=== PATIENT | male | born 1995 ===

== ENCOUNTER 2019-07-30 23:23 | Emergency (ER) | payer SELFPAY ==
[2019-07-31 01:05] LABS: Bilirubin,Urine NEG (Negative); Blood,Urine NEG (Negative); Color,Urine Yellow (Yellow); Hyaline Casts,Urine 1 /LPF; Mucus,Urine FEW /HPF; Protein,Urine <15 mg/dL mg/dL (Negative); RBC,Urine < 1.0 /HPF (0.0-6.0)
[2019-07-31 04:10] VITALS: BP 119/57
[2019-07-31] MEDS ORDERED: ONDANSETRON 4 MG/2 ML INJ IV ONE (05:37)
[2019-07-31] MEDS ORDERED: SODIUM CHLORIDE 0.9% 1000 ML 1,000 ML IV ONE (05:37)
--- NOTE | 2019-07-31 05:40 | Emergency Department Report ---
Vomiting/Diarrhea - HPI Chief Complaint: Nausea/Vomiting/Diarrhea Stated Complaint: N/V; CONSTIPATION Time Seen by Provider: 07/31/19 04:43 Duration: 1 week Severity: severe Nausea/Vomiting Severity: Severe Diarrhea Severity: None Pain Location: Generalized Pain Severity: Moderate Symptoms: No Watery Diarrhea, No Bloody diarrhea, No Fever, No Able to Tolerate Fluids, No Recent Unusual Foods, No Recent Untreated Water, No Recent use of Antibiotics, No Family w/ Similar Symptoms, No Contacts w/ Similar Symptoms, No Rash, No Hematuria, No Recent URI Symptoms Other History: This is a 24-year-old male that presents to the emergency room with abdominal cramping, vomiting, and burping for 1 week. Patient states he felt constipated. Patient reports burping and abdominal cramping is worse with movement. He also reports she feels. He has not taken anything for symptomatic relief. He denies travel, no unusual foods, no diarrhea, chest pain, shortness of breath, or dizziness. ED Review of Systems ROS: Stated complaint: N/V; CONSTIPATION Other details as noted in HPI Constitutional: chills. denies: fever ENT: denies: ear pain, throat pain Respiratory: denies: cough, shortness of breath, wheezing Cardiovascular: denies: chest pain, palpitations Gastrointestinal: abdominal pain, nausea, vomiting, constipation. denies: diarrhea, hematemesis, melena, hematochezia Genitourinary: denies: urgency, dysuria Musculoskeletal: denies: back pain, joint swelling, arthralgia Skin: denies: rash, lesions Neurological: denies: headache, weakness, paresthesias Psychiatric: denies: anxiety, depression ED Past Medical Hx - Surgical History Additional Surgical History: "SURGERY FOR BUMPS ON LOWER BACK??" - Social History Smoking Status: Never Smoker Substance Use Type: None - Medications Home Medications: Home Medications Medication Instructions Recorded Confirmed Last Taken Type Ibuprofen [Motrin 600 MG tab] 600 mg PO Q8H PRN #21 tablet 07/11/14 Unknown Rx Omeprazole 20 mg PO BID #30 tab. 07/31/19 Unknown Rx Ondansetron [Zofran Odt] 4 mg PO Q8HR PRN #20 tab.dina 07/31/19 Unknown Rx Vomiting Diarrhea Exam - Exam General: Vital signs noted. No distress. Alert and acting appropriately. HEENT: Yes Pharyngeal Erythema (emittance posterior pharynx, uvula midline), Yes Moist Mucous Membranes, No Pharyngeal Exudates, No Rhinorrhea, No Conjuctival Injection, No Frontal Tenderness, No Maxillary Tenderness Neck: No Adenopathy, No Rigidity Lungs: Yes Clear Lung Sounds, Yes Good Air Exchange, No Wheezes, No Stridor, No Cough, No Nasal Flaring, No Retractions, No Use of Accessory Muscles Heart exam: Regular: Yes, Murmur: No, Tachycardia: No Abdomen: Tenderness: Yes (left lower quadrant), Peritoneal Signs: No, Distention: No, Hyperactive Bowel sounds: No Skin exam: Rash: No, Edema: No, Normal turgor: Yes Neurologic: Alert and oriented, no deficits. Musculoskeletal: Unremarkable. ED Course Vital Signs 07/31/19 07/31/19 00:04 04:09 Temperature 99.4 F Pulse Rate 57 L 93 H Respiratory 18 16 Rate Blood Pressure 127/88 Blood Pressure 119/57 [Left] O2 Sat by Pulse 96 99 Oximetry ED Medical Decision Making - Lab Data Result diagrams: 07/31/19 05:40 07/31/19 05:40 Lab Results 07/31/19 07/31/19 07/31/19 Range/Units 00:17 05:40 05:40 WBC 4.6 (4.5-11.0) K/mm3 RBC 4.73 (3.65-5.03) M/mm3 Hgb 14.7 (11.8-15.2) gm/dl Hct 43.1 (35.5-45.6) % MCV 91 (84-94) fl MCH 31 (28-32) pg MCHC 34 (32-34) % RDW 13.0 L (13.2-15.2) % Plt Count 204 (140-440) K/mm3 Lymph % (Auto) [employer] Add Manual Diff Complete Total Counted 100 Seg Neutrophils % [employer] Seg Neuts % (Manual) 27.0 L (40.0-70.0) % Band Neutrophils % 0 % Lymphocytes % (Manual) 65.0 H (13.4-35.0) % Reactive Lymphs % (Man) 0 % Monocytes % (Manual) 2.0 (0.0-7.3) % Eosinophils % (Manual) 3.0 (0.0-4.3) % Basophils % (Manual) 3.0 H (0.0-1.8) % Metamyelocytes % 0 % Myelocytes % 0 % Promyelocytes % 0 % Blast Cells % 0 % Nucleated RBC % Not Reportable Seg Neutrophils # Man 1.2 L (1.8-7.7) K/mm3 Band Neutrophils # 0.0 K/mm3 Lymphocytes # (Manual) 3.0 (1.2-5.4) K/mm3 Abs React Lymphs (Man) 0.0 K/mm3 Monocytes # (Manual) 0.1 (0.0-0.8) K/mm3 Eosinophils # (Manual) 0.1 (0.0-0.4) K/mm3 Basophils # (Manual) 0.1 (0.0-0.1) K/mm3 Metamyelocytes # 0.0 K/mm3 Myelocytes # 0.0 K/mm3 Promyelocytes # 0.0 K/mm3 Blast Cells # 0.0 K/mm3 WBC Morphology Not Reportable Hypersegmented Neuts Not Reportable Hyposegmented Neuts Not Reportable Hypogranular Neuts Not Reportable Smudge Cells Not Reportable Toxic Granulation Not Reportable Toxic Vacuolation Not Reportable Dohle Bodies Not Reportable Pelger-Huet Anomaly Not Reportable Susana Rods Not Reportable Platelet Estimate Cons Clumped Platelets Not Reportable Plt Clumps, EDTA Not Reportable Large Platelets Few Giant Platelets Not Reportable Platelet Satelliting Not Reportable Plt Morphology Comment Not Reportable RBC Morphology Not Reportable Dimorphic RBCs Not Reportable Polychromasia Not Reportable Hypochromasia Not Reportable Poikilocytosis Not Reportable Anisocytosis Few Microcytosis Not Reportable Macrocytosis Not Reportable Spherocytes Not Reportable Pappenheimer Bodies Not Reportable Sickle Cells Not Reportable Target Cells Not Reportable Tear Drop Cells Not Reportable Ovalocytes Few Helmet Cells Not Reportable [place] Bodies Not Reportable [place] Rings Not Reportable Jaspal Cells Not Reportable Bite Cells Not Reportable Crenated Cell Not Reportable Elliptocytes Not Reportable Acanthocytes (Spur) Not Reportable Rouleaux Not Reportable Hemoglobin C Crystals Not Reportable Schistocytes Not Reportable Malaria parasites Not Reportable Williams Bodies Not Reportable Hem Pathologist Commnt No Sodium 141 (137-145) mmol/L Potassium 4.1 (3.6-5.0) mmol/L Chloride 100.7 (98-107) mmol/L Carbon Dioxide 25 (22-30) mmol/L Anion Gap 19 mmol/L BUN 15 (9-20) mg/dL Creatinine 0.8 (0.8-1.5) mg/dL Estimated GFR > 60 ml/min BUN/Creatinine Ratio 19 % Glucose 90 (75-100) mg/dL Calcium 9.4 (8.4-10.2) mg/dL Total Bilirubin 0.70 (0.1-1.2) mg/dL AST 20 (5-40) units/L ALT 16 (7-56) units/L Alkaline Phosphatase 97 (35-129) units/L Total Protein 7.3 (6.3-8.2) g/dL Albumin 4.6 (3.9-5) g/dL Albumin/Globulin Ratio 1.7 % Urine Color Yellow (Yellow) Urine Turbidity Clear (Clear) Urine pH 6.0 (5.0-7.0) Ur Specific [place] 1.026 (1.003-1.030) Urine Protein <15 mg/dl (Negative) mg/dL Urine Glucose (UA) Neg (Negative) mg/dL Urine Ketones Tr (Negative) mg/dL Urine Blood Neg (Negative) Urine Nitrite Neg (Negative) Urine Bilirubin Neg (Negative) Urine Urobilinogen 2.0 (<2.0) mg/dL Ur Leukocyte Esterase Neg (Negative) Urine WBC (Auto) 2.0 (0.0-6.0) /HPF Urine RBC (Auto) < 1.0 (0.0-6.0) /HPF U Epithel Cells (Auto) < 1.0 (0-13.0) /HPF Hyaline Casts 1 /LPF Urine Mucus Few /HPF - Radiology Data Radiology results: report reviewed CT of the abdomen and pelvis with contrast INDICATION: Left lower quadrant pain COMPARISON: None FINDINGS: The lung bases are clear. The liver, spleen, pancreas, adrenal glands and kidneys all appear normal. No definite gallbladder or biliary tree abnormality. No fluid or adenopathy in the upper abdomen. CT of the pelvis shows a normal appendix. No diverticulosis or diverticulitis. There is no colitis or enteritis. Prostate is not enlarged. No pelvic or inguinal adenopathy. No hernia or bowel obstruction. No significant skeletal lesion. IMPRESSION: Negative study. Automated exposure control was utilized to diminish radiation dose. - Medical Decision Making This is a 24 y.o. male that presents with vomiting and abdominal pain for one week. Patient is stable and was examined by me. Vitals stable. TTP to left lower quadrant on exam. Obtained CMP, CBC, & UA. All unremarkable. CT of abdomen obtained and dictated by radiologist with no acute findings. Given antiemetics and normal saline IV once in ER. Plan to start zofran for gastritis. Discussed plan with patient and agreed to plan. No further questions noted by the patient. Discharged home in stable condition. Follow up with PCP in 2-3 days . - Differential Diagnosis appendicitis, constipation, diverticulitis, colitis Critical care attestation.: If time is entered above; I have spent that time in minutes in the direct care of this critically ill patient, excluding procedure time. ED Disposition Clinical Impression: Gastroenteritis, Nausea and vomiting in adult, Abdominal cramping Disposition: DC- TO HOME OR SELFCARE Is pt being admited?: No Condition: Stable Instructions: Gastroenteritis (ED), Acute Nausea and Vomiting (ED) Additional Instructions: Frequent hand washing is important to reduce spread. Prompt disinfection of contaminated surfaces with household chlorine bleach- based manager medical device and washing of soiled clothing and bedding should be advised. If food or water is thought to be contaminated, it should be avoided. Increase fluid intake. Drinks high in sugars such as carbonated soft drinks, fruit juice, and highly sugared liquids should be avoided. Prescriptions: Omeprazole 20 mg PO BID #30 tab Ondansetron [Zofran Odt] 4 mg PO Q8HR PRN #20 tab.dina PRN Reason: Nausea And Vomiting Referrals: [facility] [place] [facility] [place] - 3-5 Days [facility] [Outside] - 3-5 Days [facility] [Outside] - 3-5 Days Forms: Work/School Release Form(ED), Accompanied Note Time of Disposition: 06:54
[2019-07-31 05:50] LABS: Red Blood Count 4.73 M/mm3 (3.65-5.03)
[2019-07-31 05:51] LABS: Hematocrit 43.1 % (35.5-45.6); Hemoglobin 14.7 gm/dl (11.8-15.2); Mean Corpuscular HGB Conc 34 % (32-34); Mean Corpuscular Volume 91 fl (84-94); Platelet Count 204 K/mm3 (140-440)
[2019-07-31 06:13] LABS: Alanine Aminotransferase 16 units/L (7-56); Albumin 4.6 g/dL (3.9-5); BUN/Creatinine Ratio 19; Blood Urea Nitrogen 15 mg/dL (9-20); Calcium 9.4 mg/dL (8.4-10.2); Hemolysis Index 21
[2019-07-31 06:35] LABS: Total Cells Counted 100
[2019-07-31 06:36] LABS: Anisocytosis Few; Large Platelets Few; Ovalocytes Few; Platelet Estimate Cons
--- NOTE | 2019-07-31 06:46 | Cat Scan Report ---
CT of the abdomen and pelvis with contrast INDICATION: Left lower quadrant pain COMPARISON: None FINDINGS: The lung bases are clear. The liver, spleen, pancreas, adrenal glands and kidneys all appe ar normal. No definite gallbladder or biliary tree abnormality. No fluid or adenopathy in the upper a bdomen. CT of the pelvis shows a normal appendix. No diverticulosis or diverticulitis. There is no colitis or enteritis. Prostate is not enlarged. No pelvic or inguinal adenopathy. No hernia or bowel obstructio n. No significant skeletal lesion. IMPRESSION: Negative study. Automated exposure control was utilized to diminish radiation dose. Signer Name: Tomi Gutierrez MD Signed: 07/31/2019 6:42 AM Workstation Name: [id number]
== END 2019-07-31 07:10 | disposition home or self-care (01) ==
LOC: ED 23:23
DX: K52.9 Noninfective gastroenteritis and colitis, unspecified (principal); Z79.899 Other long term (current) drug therapy
CPT/HCPCS: 36415; 74177; 80053; 81001; 85007; 85025; 96361; 96374; 99284; J2405; J7030; Q9967